=== PATIENT | female | born 1985 | race Caucasian/White ===

== ENCOUNTER → 2018-03-20 15:12 | Outpatient (CLI) | payer SELFPAY ==
[2018-03-20 15:42] LABS: Absolute Neutrophil Count 6.5 X10^3/uL (2.0-7.7); Basophil# 0.02 X10^3/uL; Basophil% 0.2 % (0-1); Eosinophil# 0.08 X10^3/uL; Eosinophils% 0.9 % (0-5); Hematocrit 38.9 % (37-47); Lymphocyte % 17.5 % (19-41); Mean Corp Hgb Conc 33.4 g/gl (32-36); Mean Corpuscular Hgb 27.5 pg (27.0-32.0); Mean Corpuscular Volume 82.4 fL (81-99); Mean Platelet Vol. 10.7 fl (6.2-12.0); Monocyte# 0.46 X10^3/uL; Monocyte% 5.4 % (0-10); Neutrophil # 6.53 X10^3/uL (2.7-7.7); Platelet Count 266 K/mm3 (150-450); RBC Distribution Width CV 12.6 % (11.6-14.6); Red Blood Count 4.72 M/mm3 (4.2-5.4); White Blood Count 8.6 K/mm3 (4.4-11.0)
[2018-03-20 15:45] LABS: POSITIVE COUNT NO; POSITIVE DIFFERENTIAL NO; POSITIVE MORPHOLOGY NO
[2018-03-20 15:53] LABS: Color, Urine Yellow (Yellow); Glucose, Dipstick Normal (Normal); Ketone-Dipstick Negative (Negative); Leukocyte Esterase-Dipstick 25 /ul (Negative); Nitrite-Dipstick Negative (Negative); Occult Blood-Urine 25 /ul (Negative); Protein-Dipstick Negative (Negative); Urine Bilirubin Dipstick Negative (Negative); Urine Clarity Clear (Clear); Urine Urobilinogen Normal (Normal)
[2018-03-20 16:16] LABS: Thyroid Stim Hormone (TSH) 0.15 uIU/mL (0.358-3.74)
[2018-03-20 16:57] LABS: HIV - WCH Non-Reactive (Nonreactive); Rubella IgG > 500.0 IU/mL
[2018-03-20 17:45] LABS: Chlamydia Trachomatis by PCR Negative (Negative); Neisserai gonorrhoeae by PCR Negative (Negative); Probe Check PASS; Sample Adequacy Control PASS; Specimen Processing Control PASS
[2018-03-22 11:09] LABS: HEPATITIS B SURFACE AG Negative (Negative); Hep C Antibodies <0.1 s/co ratio (0.0-0.9)
[2018-03-23 11:23] LABS: HPV Reflexed? NOT INDICATED
[2018-03-24 04:13] LABS: Prenatal RPR NONREACTIVE (NONREACTIVE)
== END ==
PROVIDERS: Visit Provider Obstetrics & Gynecology
DX: Z34.81 Encounter for supervision of other normal pregnancy, first trimester (principal); Z12.4 Encounter for screening for malignant neoplasm of cervix; Z11.3 Encounter for screening for infections with a predominantly sexual mode of transmission
CPT/HCPCS: 36415; 81002; 84443; 85025; 86703; 86762; 86803; 87340; 87491; 87591; 87624; 88175; G0145

== ENCOUNTER 2018-10-17 09:09 | Inpatient (IN) | payer SELFPAY, OTHER ==
--- NOTE | 2018-10-15 02:18 | PCM.HPOB.BLA ---
History and Physical Date of Admission: 10/15/18 [facility] History of this : 33 yo female Ab0 with EDC 10/23/2018 by 10 weeks 0 days Ultrasound, presents to Labor and Delivery. care remarkable for - Declines MSAFP, CF, Prior ---plan repeat and plans bilateral tubal ligation also. Pertinent Past Medical History: negative Allergies: NKDA Medications: During - Gummy Prenatals; Zofran 8 mg tablet; Supplement (s) [No Strength] Review of Systems: Non-contributory PHYSICAL EXAMINATION General Appearance: 33 yo female in no acute distress Vital Signs: AFEB, VSS Heart: RRR without rubs or gallops Lungs: CTA x 2 Breasts: deferred Abdomen: gravid Pelvis: Cervix: deferred Presentation: cephalic Station: Fetus: Size: AGA Movement: present Heart: present Impression /Plan: Intrauterine at 39 wk EGA Prior C/S delivery. Plans repeat C/S and bilateral tubal ligation. Preparations in progress for delivery. See Progress Notes for Changes: Physician's Signature: Date: 10/17/18 12:43
[2018-10-17] VITALS (17 sets, daily range): BP systolic 84–118; BP diastolic 42–69; PULSE 59–89; RESP 16–98; TEMP 36.3–37; O2SAT 96–100; BMI 34.0
--- NOTE | 2018-10-17 01:15 | FALS_PTH ---
PATIENT: MERVIN FRANCOIS LOC: [facility] U#:[id number] AGE/SX: 33/F ROOM: WP007 RE10/17/[address]: Dr. Paula Solis MD : 1985 BED: 1 DIS: 10/19/2018 SPEC #: [id number] RECD: 10/17/18 15:06 STATUS: JOSE REGabriel #: [id number] JULIA: 10/17/18 01:[address]: Paula Solis DEPT: SURGICAL PATHOLOGY RECD BY: Alex Morales ENTERED: 10/18/18 09:30 SP TYPE: FALL TUBES OTHR DR: Dr. Yonas Francois MD Tissues: Fallopian tube Procedures: Surgery Specimen Level II HEADER OPERATION: Tubal ligation PRE-OP DIAGNOSIS: Sterilization request TISSUE SUBMITTED: Fallopian tube MICROSCOPIC DIAGNOSIS Right and left fallopian tubes, bilateral partial salpingectomies: Fallopian tube with suture - benign paratubal cyst. Fallopian tube without suture - focal decidual change. AM:cece 10/19/18 MICROSCOPIC DESCRIPTION Slides are reviewed. GROSS DESCRIPTION Received is one container labeled with the patient's name and designated bilateral fallopian tubes. The specimen consists of two fallopian tubes. The fallopian tube with suture measures 1 cm in length and 0.5 cm in diameter. The other one measures 1 cm in length and 0.6 cm in diameter. No mass lesions are identified. The specimen is totally submitted as follows: 1 - fallopian tube with suture, 2 - fallopian tube without suture. / AM:cece 10/18/18 TC:5 CPT: 58074 x2
[2018-10-17] MEDS: Lactated Ringers 1,000 ML 999 ML IV (09:30)
[2018-10-17 10:02] LABS: Absolute Lymphocyte Count 1.26 X10^3/ul (0.83-4.51); Basophil# 0.02 X10^3/uL; Basophil% 0.2 % (0-1); Eosinophil# 0.04 X10^3/uL; Eosinophils% 0.4 % (0-5); Hematocrit 36.4 % (37-47); Hemoglobin 12.1 g/dl (12.0-15.0); Lymphocyte # 1.26 X10^3/ul (4.0); Lymphocyte % 12.5 % (19-41); Mean Corp Hgb Conc 33.2 g/gl (32-36); Mean Corpuscular Hgb 28.8 pg (27.0-32.0); Mean Corpuscular Volume 86.7 fL (81-99); Mean Platelet Vol. 10.2 fl (6.2-12.0); Monocyte# 0.73 X10^3/uL; Monocyte% 7.2 % (0-10); Neutrophil # 7.97 X10^3/uL (2.7-7.7); Neutrophil % 79.1 % (47-70); Platelet Count 191 K/mm3 (150-450); Prothrombin Time (Protime)PT. 13.1 SECONDS (11.7-14.9); RBC Distribution Width CV 14.3 % (11.6-14.6); RBC Distribution Width SD 44.9 fl (35.1-43.9); White Blood Count 10.1 K/mm3 (4.4-11.0)
[2018-10-17 10:03] LABS: Partial Thromboplast Time 29.6 Seconds (24.1-36.2)
[2018-10-17 10:05] LABS: POSITIVE COUNT NO; POSITIVE DIFFERENTIAL NO; POSITIVE MORPHOLOGY NO
[2018-10-17] MEDS: Lactated Ringers 1,000 ML 150 ML IV (10:39)
[2018-10-17] MEDS: Sodium Citrate/Citric Acid 30 ML UDC PO (12:45)
[2018-10-17] MEDS: Cefazolin 2 GM in 0.9% Normal Saline 100 ML IV (13:10)
[2018-10-17] MEDS: Oxytocin 30 units/NS 500 ml 30 UNITS/500 ML IV.SOLN 167 UNITS IV (13:20)
[2018-10-17] MEDS: Ketorolac 30 MG/ML Syringe IV ×2 (13:40→18:45)
[2018-10-17] MEDS: Lactated Ringers 1,000 ML 100 ML IV ×2 (14:00→15:56)
[2018-10-17] MEDS: Oxymetazoline 0.05% 1 SPRAY SPRAY.BTL 2 SPRAY NASAL ×2 (15:00→21:50)
[2018-10-17 15:04] LABS: Pathology Specimen OB SEE PATHOLOGY REPORT
--- NOTE | 2018-10-17 17:30 | PCM.OPRPT ---
Report of Operation motion picture operator: Marietta Ahn Type of Anesthesia:: Spinal Anesthesiologist: Lele Lainez - SAMIR Specimen's removed: Bilateral tubal segments Delivery Classification: Scheduled Final DEBORAH: 10/23/18 Gestational age: 39 Weeks and 1 Days Indications: 39 1/7 wk EGA with h/o 3 prior C sections. Sterilization request. Indications for : Repeat Elective , Desires elective sterilization Description of Procedure: Findings: At amniotomy, clear fluid was noted. Orellana viable female in vertex presentation. Apgars 9/9, Baby weight: 7#14 oz There was a normal appearing uterus, fallopian tubes and ovaries bilaterally. There were minimal filmy adhesions between the bladder and lower uterine segment. PATH: bilateral tubal segments Narrative account: After the risks, benefits and alternatives of the procedure were reviewed with the patient, informed consent was obtained. The patient was taken to the Operating room with an IV running, and placed in a seated position on the operating table for placement of the spinal. Once the spinal had been administered, she was briefly frog-legged for Bajwa catheter placement, and then repositioned to dorsal supine position with leftward displacement of the uterus, and prepped and draped in the usual sterile fashion. Once the spinal was deemed adequate, a Pfannenstiel skin incision was created using the knife (through the prior skin incision scar). The incision was carried down to the rectus fascia using the knife. The fascia was nicked in the midline. The fascial incision was extended bilaterally The superior aspect of the fascial incision was grasped with Roman clamps and tented up and the underlying rectus abdominal muscles were dissected free. In a similar manner, the inferior aspect of the facial incision was grasped with Roman clamps tented up and the underlying rectus abdominal muscles were dissected free. The rectus abdominis muscles were in the midline and the peritoneum was identified and entered by blunt dissection high in the incision. The peritoneum was stretched laterally and a bladder blade was inserted. The uterine incision was then created using Metzenbaum scissors superior to the visible bladder flap reflection. The operators fingertips were used to extend the uterine incision by blunt dissection in a caudad- cephalad orientation . Clear fluid was noted at amniotomy. The vertex was then delivered atraumatically through the incision. The OP and nares were bulb suctioned on the abdomen. CAN times one was reduced The shoulders delivered easily . The cord clamped x two and cut. And the infant was handed off to the nurse awaiting delivery after briefly showing her to her parents. The baby had a spontaneous, vigorous cry. The placenta was then delivered. The uterus was exteriorized and cleared of clots and debris . The uterine incision was repaired with 1 Vicryl in a running locked fashion. A series of horizontal mattress stitches of 1 Vicryl were placed along the entire incision for hemostasis. Excellent hemostasis was noted. At this point attention was then turned to the bilateral partial salpingectomy. The right fallopian tube was grasped at a relatively avascular midportion and a Olivia clamp was used to tent the tube up. A defect was created in the mesosalpinx using Bovie cautery. The proximal and distal ends of the fallopian tube were tied with a 2-0 catgut. A knuckle of the tube was then tied off inferior to these 2 ties placed prior. A segment of the left fallopian tube was then excised using Metzenbaum scissors. Bovie cautery was used at the tubal stumps to assure continued hemostasis. The tubal segment was set aside for later pathology review. In a similar manner the left fallopian tube partial salpingectomy was performed. Excellent hemostasis was noted at both tubal segments. The two portions of the completely transected fallopian tubes were set aside for later pathology review. At this point the uterus was returned to the abdominal cavity. The gutters were cleared of clots and debris and the incision at the uterus was inspected. Excellent hemostasis was noted. The peritoneal edges and rectus abdominis muscles were reapproximated in the midline with a series of 1 Vicryl. Excellent hemostasis was noted at the subfascial space The fascia was closed in a running nonlocked fashion with a Stratofix. The Subcutaneous fatty tissue was Bovie cauterized as needed for hemostasis. There was very minimal depth of the subcutaneous fatty tissue. This layer was not sutured. The skin edges were closed in a Subcuticular stitch of 4-0 Monocryl. The incision was cleansed. Cavilon, Steristrips, and Mepilex dressing were applied to the skin . The patient was then transferred to the recovery room bed in stable condition after tolerating the procedure well. Sponge, lap, needle and instrument counts correct times two. Medications given preop and intraoperatively included: Ancef 2 gm given repossession agent to the operating room. The patient also received Pitocin given IV after cord clamp, and Toradol 30 mg IV times one. For a complete listing of medications given preop and intraoperatively, please see the anesthesia record. Amniotic Membrane Rupture Type: Artificial Amniotic Fluid Description: Clear Placenta Disposition: [facility] Specimen(s) sent to pathology: Bilateral fallopian tube segments Drain: Bajwa to straight drain Fluids Replaced: LR Cord Entanglement: Around neck x 1, loose Cord Vessel Description: 3 Vessels Esitmated Blood Loss (ml): 800 Gender: Female (1 minute): 9 (5 minute): 9 Delayed cord clamping: No Pt instructed on risks of surgery: Bleeding, Anesthesia Risks, Infection, Permanency, Failure Rate of 1 to 2%, Injury to surrounding structure(s) including bowel and bladder Complications: None - Admit VTE Documentation VTE Present on Admission: No VTE Mechan Device Prophylaxis: SCD's VTE Pharm Prophylaxis ordered?: No
--- NOTE | 2018-10-17 17:41 | PCM.DCCSEC ---
Discharge Diet: No Restrictions Discharge Activity: May not drive while taking narcotic pain medications., May Shower, May Take a Tub Bath Return to work on:: 12/04/18 May resume sexual activity in: 4-6 weeks Lifting Restrictions: 20 pounds Additional Activity Instructions:: Nothing in the vagina for 4-6 weeks. You may return to work/school in 6 weeks. Change Dressing in (Days):: 7 Remove Dressing in (days):: 7 Cleanse incision/area with: Soap & Water, Keep Dressing Clean & Dry Additional Instructions: If you experience any of the following, contact your healthcare provider. Bleeding that soaks a pad every hour for 2 hours Fever 100.4 or higher Unrelieved incision or abdominal pain Swelling, redness, discharge or bleeding from your incision Problems urinating (including inability to urinate or burning while urinating). Visual changes Severe headache Flu-like symptoms Pain or redness in one of both of your breasts Pain, warmth, tenderness or swelling in your legs, especially the calf area Frequent nausea and vomiting Symptoms of depression or anxiety If you experience any of the following, call 911 or go to the nearest Emergency Room. Chest pain Problems breathing Seizure activity Partial or complete paralysis of a body part, slurred speech, weakness or drooping of the face, or a sudden inability to walk or hold your balance Allergies/Adverse Reactions: Allergies No Known Allergies Allergy (Verified 10/17/18 09:35) Medications to take at Discharge Docusate Sodium [Colace] 100 mg PO BID #30 capsule 10/17/18 Naproxen [Naprosyn] 250 - 500 mg PO TID PRN PRN #30 tablet 10/17/18 Oxycodone [Oxyir] 5 - 10 mg PO Q6H PRN PRN 3 Days #20 tab 10/17/18 Pnv No.95/Ferrous Fum/Folic AC [ Caplet] 1 each PO 10/17/18 Polyethylene Glycol 3350 [Miralax] 17 gm PO DAILY PRN #14 packet 10/17/18 The following prescriptions were given: Oxycodone [Oxyir] 5 - 10 mg PO Q6H PRN PRN 3 Days #20 tab PRN Reason: Mod-Severe Pain (-03/08) Naproxen [Naprosyn] 250 - 500 mg PO TID PRN PRN #30 tablet PRN Reason: Mild-Mod Pain (1-10/06) Polyethylene Glycol 3350 [Miralax] 17 gm PO DAILY PRN #14 packet PRN Reason: Constipation Docusate Sodium [Colace] 100 mg PO BID #30 capsule Follow-Up: Call to make an appointment with your doctor for an incision check in 1-2 weeks. You will also need a 6 week post- follow up appointment. Test results from this visit will be discussed in further detail at your follow-up appointment, if applicable. Please Follow Up With: Manolo Caicedo MD - [phone] When: Keep appointment as scheduled for an incision check in 2 weeks. Primary Care Physician: Yonas Francois MD [Primary Care Provider] - Proposed Discharge Date: 10/20/18
--- NOTE | 2018-10-17 17:45 | DCINST_ITS ---
Discharge Diet: No Restrictions Discharge Activity: May not drive while taking narcotic pain medications., May Shower, May Take a Tub Bath Return to work on:: 12/04/18 May resume sexual activity in: 4-6 weeks Lifting Restrictions: 20 pounds Additional Activity Instructions:: Nothing in the vagina for 4-6 weeks. You may return to work/school in 6 weeks. Change Dressing in (Days):: 7 Remove Dressing in (days):: 7 Cleanse incision/area with: Soap & Water, Keep Dressing Clean & Dry Additional Instructions: If you experience any of the following, contact your healthcare provider. * Bleeding that soaks a pad every hour for 2 hours * Fever 100.4 or higher * Unrelieved incision or abdominal pain * Swelling, redness, discharge or bleeding from your incision * Problems urinating (including inability to urinate or burning while urinating). * Visual changes * Severe headache * Flu-like symptoms * Pain or redness in one of both of your breasts * Pain, warmth, tenderness or swelling in your legs, especially the calf area * Frequent nausea and vomiting * Symptoms of depression or anxiety If you experience any of the following, call 911 or go to the nearest Emergency Room. * Chest pain * Problems breathing * Seizure activity * Partial or complete paralysis of a body part, slurred speech, weakness or drooping of the face, or a sudden inability to walk or hold your balance Allergies/Adverse Reactions: Allergies No Known Allergies Allergy (Verified 10/17/18 09:35) Medications to take at Discharge Docusate Sodium [Colace] 100 mg PO BID #30 capsule 10/17/18 Naproxen [Naprosyn] 250 - 500 mg PO TID PRN PRN #30 tablet 10/17/18 Oxycodone [Oxyir] 5 - 10 mg PO Q6H PRN PRN 3 Days #20 tab 10/17/18 Pnv No.95/Ferrous Fum/Folic AC [ Caplet] 1 each PO 10/17/18 Polyethylene Glycol 3350 [Miralax] 17 gm PO DAILY PRN #14 packet 10/17/18 The following prescriptions were given: Oxycodone [Oxyir] 5 - 10 mg PO Q6H PRN PRN 3 Days #20 tab PRN Reason: Mod-Severe Pain () Naproxen [Naprosyn] 250 - 500 mg PO TID PRN PRN #30 tablet PRN Reason: Mild-Mod Pain (1-10/06) Polyethylene Glycol 3350 [Miralax] 17 gm PO DAILY PRN #14 packet PRN Reason: Constipation Docusate Sodium [Colace] 100 mg PO BID #30 capsule Follow-Up: Call to make an appointment with your doctor for an incision check in 1-2 weeks. You will also need a 6 week post- follow up appointment. Test results from this visit will be discussed in further detail at your follow- up appointment, if applicable. Please Follow Up With: Manolo Caicedo MD - [phone] When: Keep appointment as scheduled for an incision check in 2 weeks. Primary Care Physician: Yonas Francois MD [Primary Care Provider] - Proposed Discharge Date: 10/20/18
--- NOTE | 2018-10-17 19:38 | NURSING ---
Pt. blood pressure low. All other vital signs within normal limits. Pt. denies any headache, lightheadedness, or fatigue. Urine output adequate and fundus is firm at u-1, with small bleeding. No clots noticed and no trickles or gushes noted during fundal check. Will continue to monitor.
[2018-10-17] MEDS: Sodium Chloride 0.65% 1 SPRAY SPRAY.BTL 2 SPRAY NASAL (21:20)
[2018-10-18] VITALS (9 sets, daily range): BP systolic 86–103; BP diastolic 44–67; PULSE 59–89; RESP 14–18; TEMP 36.5–37.1; O2SAT 96–99
[2018-10-18] MEDS: Lactated Ringers 1,000 ML 100 ML IV (00:39)
[2018-10-18] MEDS: Ketorolac 30 MG/ML Syringe IV ×4 (00:57→18:40)
--- NOTE | 2018-10-18 00:57 | NURSING ---
Pt. last two blood pressures resulted at 88/49 and 86/44. Pt's fundus still firm, ranging from u/u to u-1 depending on position. Pt. denies any headache or dizziness. Pt. sat at edge of bed then stood up for a few minutes. Tolerated well. Bleeding scant to small amount with no clots noted. Will continue to monitor.
[2018-10-18 04:43] LABS: Hematocrit 32.5 % (37-47); Hemoglobin 10.7 g/dl (12.0-15.0); Mean Corp Hgb Conc 32.9 g/gl (32-36); Mean Corpuscular Hgb 28.9 pg (27.0-32.0); Mean Corpuscular Volume 87.8 fL (81-99); Mean Platelet Vol. 10.5 fl (6.2-12.0); Platelet Count 174 K/mm3 (150-450); RBC Distribution Width CV 14.3 % (11.6-14.6); RBC Distribution Width SD 44.6 fl (35.1-43.9); White Blood Count 9.8 K/mm3 (4.4-11.0)
[2018-10-18 04:44] LABS: Scan Indicated on CBC? Y/N NO
--- NOTE | 2018-10-18 07:22 | PCM.PN.OB ---
Subjective: POD#1 Repeat C/S and BPS. Doing well. Pain control adequate. Some inc in gas and shoulder pain. Had this with prior pregnancies and deliveries also. Usually helps to drink apple juice and plans to order for breakfast. Objective: Holding sleeping baby. - Physical Exam General: Alert, Oriented x3, Cooperative, No apparent distress HEENT: Atraumatic Neck: Supple Abdomen: Soft - Softly distended and tympanitic. Fundus firm and tender c/w postop status at just inferior to umbilicus Skin: Incision - steristrips in place, CDI. Neurological: Cranial nerves II-XII grossly intact Psych/Mental Status: Normal Affect Vital Signs Temp Pulse Resp BP Pulse Ox 98.1 F 84 16 88/44 L 98 10/18/18 04:15 10/18/18 06:27 10/18/18 06:27 10/18/18 04:15 10/18/18 06:27 Oxygen Delivery Method Room Air Weight: 87.09 kg Body Mass Index (BMI) 34.0 Intake and Output for Last 24 Hours 10/16/18 10/17/18 10/18/18 23:59 23:59 23:59 Intake Total 3118 / 3118 2174 / 2174 Output Total 2400 / 2400 1900 / 1900 Balance 718 / 718 274 / 274 Laboratory Tests Past 24 Hrs 10/17/18 10/17/18 10/17/18 09:30 09:30 09:30 WBC 10.1 RBC 4.20 Hgb 12.1 Hct 36.4 L MCV 86.7 MCH 28.8 MCHC 33.2 RDW 14.3 RDW Differential 44.9 H Plt Count 191 MPV 10.2 Immature Gran % (Auto) 0.600 Neut % (Auto) 79.1 H Lymph % (Auto) 12.5 L [place] % (Auto) 7.2 Eos % (Auto) 0.4 Baso % (Auto) 0.2 Absolute Neuts (auto) 8.0 H Absolute Lymphs (auto) 1.26 Total Counted Not Reportable PT 13.1 INR 1.0 APTT 29.6 Blood Type A POSITIVE Antibody Screen NEGATIVE 10/18/18 04:23 WBC 9.8 RBC 3.70 L Hgb 10.7 L Hct 32.5 L MCV 87.8 MCH 28.9 MCHC 32.9 RDW 14.3 RDW Differential 44.6 H Plt Count 174 MPV 10.5 Immature Gran % (Auto) Neut % (Auto) Lymph % (Auto) [place] % (Auto) Eos % (Auto) Baso % (Auto) Absolute Neuts (auto) Absolute Lymphs (auto) Total Counted PT INR APTT Blood Type Antibody Screen Medical Necessity - Tobacco Use Smoking Status: Never smoker Assessment/Plan POD#1 S/P repeat C/S and BPS at 39 1/7 wk EGA Stable pp. AVSS Hgb stable. Excellent urine output. D/C sherman today for voiding trial. Begin po meds. Inc diet and activity as tolerated. S/L IV to continue Toradol IV q 6 hr today.
[2018-10-18] MEDS: Sodium Chloride 0.65% 1 SPRAY SPRAY.BTL 2 SPRAY NASAL ×3 (07:25→18:55)
[2018-10-18] MEDS: 0.9% Saline Lock 10 ML Syringe IV ×3 (08:42→18:39)
[2018-10-18] MEDS: Oxymetazoline 0.05% 1 SPRAY SPRAY.BTL 2 SPRAY NASAL ×2 (10:01→21:06)
[2018-10-18] MEDS: Senna/Docusate Sodium 1 Tablet PO (21:05)
[2018-10-19] MEDS: Ketorolac 30 MG/ML Syringe IV ×2 (00:49→08:17)
[2018-10-19] MEDS: 0.9% Saline Lock 10 ML Syringe IV ×4 (00:50→08:19)
[2018-10-19 01:00] VITALS: BP 105/63; PULSE 74; RESP 18; TEMP 36.6
[2018-10-19] MEDS: oxyCODONE 5 MG Tablet PO (02:44)
[2018-10-19] MEDS: Sodium Chloride 0.65% 1 SPRAY SPRAY.BTL 2 SPRAY NASAL (02:46)
[2018-10-19 08:20] VITALS: BP 111/68; PULSE 89; RESP 16; TEMP 36.8
--- NOTE | 2018-10-19 08:25 | PCM.PN.OB ---
Subjective: POD#2 Repeat C/S and BPS. Doing well. Baby is nursing Milk not in yet. Plans to go home today. Passing some flatus, but abdomen still distended. Requesting Mylicon to go home with. Has appt scheduled already for postop checkup. Objective: Lying in bed holding baby and nursing. NAD - Physical Exam General: Alert, Oriented x3, Cooperative, No apparent distress HEENT: Atraumatic, EOMI Neck: Supple Abdomen: Soft - softly distended, difficult to palpate fundus, Passing Flatus Extremities: No clubbing, No cyanosis, No edema Skin: Incision - Mepilex dressing intact. Shadow drainage noted at L side. Psych/Mental Status: Normal Affect Vital Signs Temp Pulse Resp BP Pulse Ox 97.8 F 74 18 105/63 98 10/19/18 01:00 10/19/18 01:00 10/19/18 01:00 10/19/18 01:00 10/18/18 16:00 Oxygen Delivery Method Room Air Weight: 87.09 kg Body Mass Index (BMI) 34.0 Intake and Output for Last 24 Hours 05/10/18/18 10/19/18 23:59 23:59 23:59 Intake Total 3118 / 3118 2174 / 2174 Output Total 2400 / 2400 2800 / 2800 Balance 718 / 718 -626 / -626 Medical Necessity - Tobacco Use Smoking Status: Never smoker Assessment/Plan POD#2 S/P repeat C/S and BPS at 39 1/7 wk EGA Stable pp. AVSS Hgb stable. Requesting dischg home. Abdomen still tympanitic Passing some flatus. requesting Mylicon to go home with also. Plans to use a suppository. D/C home today. RTO in 2 wk as scheduled for postop checkup.
[2018-10-19] MEDS: Bisacodyl 10 MG Suppository RECTAL (08:27)
[2018-10-19] MEDS: Oxymetazoline 0.05% 1 SPRAY SPRAY.BTL 2 SPRAY NASAL (08:54)
--- NOTE | 2018-10-19 11:54 | PCM.DC.SUM ---
Discharge Date and Diagnosis Date of Admission: 10/17/18 - 39 wk, repeat C/S. BPS Date of Discharge: 10/19/18 - Same Hospital Course and Treatment Operations: - - Repeat C section and BPS Summary of Care Provided: The patient is a 33 year old F presents at 39 wk for repeat C/S and bilateral tubal ligation. Admitted for surgery. Repeat C section and BPS performed without incident. Orellana viable female in vertex presentation. Apgars 9/9, Baby weight: 7#14 oz Preoperative Hgb -- 12.1 g/dl Postoperative Hgb-- 11.7 g/dl. Physical exam. benign with incision CDI. AVSS Requests dischg to home on POD#2 Home to RTO in 2 wk for postop follow up appt. - Physical Exam Vital Signs Temp Pulse Resp BP Pulse Ox 98.3 F 89 16 111/68 98 10/19/18 08:20 10/19/18 08:20 10/19/18 08:20 10/19/18 08:20 10/18/18 16:00 Oxygen Delivery Method Room Air Weight: 87.09 kg Body Mass Index (BMI) 34.0 Intake and Output for Last 24 Hours 10/17/18 10/18/18 10/19/18 23:59 23:59 23:59 Intake Total 3118 / 3118 2174 / 2174 Output Total 2400 / 2400 2800 / 2800 Balance 718 / 718 -626 / -626 Discharge Diet: No Restrictions Discharge Activity: May not drive while taking narcotic pain medications., May Shower, May Take a Tub Bath Return to work on:: 12/04/18 May resume sexual activity in: 4-6 weeks Additional Activity Instructions:: Nothing in the vagina for 4-6 weeks. You may return to work/school in 6 weeks. Change Dressing in (Days):: 7 Remove Dressing in (days):: 7 Cleanse incision/area with: Soap & Water, Keep Dressing Clean & Dry Home Medications: Medications to take at Discharge Docusate Sodium [Colace] 100 mg PO BID #30 capsule 10/17/18 Naproxen [Naprosyn] 250 - 500 mg PO TID PRN PRN #30 tablet 10/17/18 Oxycodone [Oxyir] 5 - 10 mg PO Q6H PRN PRN 3 Days #20 tab 10/17/18 Pnv No.95/Ferrous Fum/Folic AC [ Caplet] 1 each PO 10/17/18 Polyethylene Glycol 3350 [Miralax] 17 gm PO DAILY PRN #14 packet 10/17/18 SimETHICONE [Mylicon] 80 mg PO PCHS #30 tablet 10/19/18 Following Prescrptions Were Given to Patient: Oxycodone [Oxyir] 5 - 10 mg PO Q6H PRN PRN 3 Days #20 tab PRN Reason: Mod-Severe Pain (4-03/08) Naproxen [Naprosyn] 250 - 500 mg PO TID PRN PRN #30 tablet PRN Reason: Mild-Mod Pain (1-10/06) Polyethylene Glycol 3350 [Miralax] 17 gm PO DAILY PRN #14 packet PRN Reason: Constipation SimETHICONE [Mylicon] 80 mg PO PCHS #30 tablet Docusate Sodium [Colace] 100 mg PO BID #30 capsule Primary Care Physician: Yonas Francois MD [Primary Care Provider] - Please Follow Up With: Manolo Caicedo MD - [phone] When: Keep appointment as scheduled for an incision check in 2 weeks. Medical Necessity - Tobacco Use Smoking Status: Never smoker Meaningful Use Info Meaningful Use Diagnoses (Choose all that apply): None applicable
[2018-10-19] MEDS: Acetaminophen 500 MG Tablet 1000 MG PO (12:11)
[2018-10-19 12:20] VITALS: BP 113/68; PULSE 106; RESP 16; TEMP 36.8
[2018-10-19 16:02] LABS: Pathology Specimen OB SEE PATHOLOGY REPORT
== END 2018-10-19 13:10 | disposition home or self-care (01) | DRG 785 ==
PROVIDERS: Admitting Provider Obstetrics & Gynecology; Family Provider Orthopaedic Surgery; PCP Orthopaedic Surgery; Referring Provider Obstetrics & Gynecology; Visit Provider Obstetrics & Gynecology
PROC: 10D00Z1 Extraction of Products of Conception, Low, Open Approach (ICD-10-PCS; CPT 59514; principal; 2018-10-17 11:45)
DX: O34.211 Maternal care for low transverse scar from previous cesarean delivery (principal); O69.81X0 Labor and delivery complicated by cord around neck, without compression, not applicable or unspecified; Z3A.39 39 weeks gestation of pregnancy; Z37.0 Single live birth; Z30.2 Encounter for sterilization
CPT/HCPCS: 85025; 85027; 85610; 85730; 86850; 86900; 88302; 99218; J7120; A4216; G0378; J2405

== ENCOUNTER → 2021-01-28 | Outpatient (CLI) | payer OTHER, SELFPAY ==
[2021-02-04 20:23] LABS: HPV APTIMA, High Risk Negative (Negative); HPV Reflexed? YES, CHARGE PATIENT
== END | disposition home or self-care (01) ==
LOC: LABSPEC 10:55
PROVIDERS: PCP Orthopaedic Surgery; Visit Provider Obstetrics & Gynecology
DX: Z12.4 Encounter for screening for malignant neoplasm of cervix (principal)
CPT/HCPCS: 87624; 88175; G0145